=== PATIENT | female | born 1970 | race Caucasian/White ===

== ENCOUNTER 2018-04-07 09:12 | Day surgery (SDC) | payer OTHER ==
[~2018-04-07] VITALS: Ht 170.2 cm; Wt 81.6 kg
[~2018-04-07 09:12] MED LIST: ALEVE220 MG PO; MEGACE40 MG PO; MULTIPLE VITAM1 EAC4 PO; TYLENOL EXTRA500 MG PO; ZOLOFT25 MG PO
[2018-04-07 09:42] VITALS: BP 128/64
[2018-04-07 13:00] VITALS: BP 145/67
[2018-04-07 13:49] VITALS: BP 120/65
== END 2018-04-07 13:52 | disposition home or self-care (01) ==
LOC: SDC 09:12
DX: N80.0 Endometriosis of uterus (principal); N92.1 Excessive and frequent menstruation with irregular cycle; I73.9 Peripheral vascular disease, unspecified; F42.9 Obsessive-compulsive disorder, unspecified; Z30.8 Encounter for other contraceptive management
CPT/HCPCS: 88305; J0131; J0690; J1100; J2250; J2405; J3010